=== PATIENT | female | born 1975 | race Caucasian/White ===

== ENCOUNTER 2017-07-09 21:03 | Emergency (ER) | payer MEDICAID ==
[~2017-07-09] VITALS: Ht 167.6 cm; Wt 83.9 kg
--- NOTE | 2017-07-09 21:15 | NUR ---
BIB[facility] PT C/O LAC TO RIGHT HAND 1ST AND 2ND DIGIT S/P HOLDING BROKEN GLASS BOTTLE. NO ACTIVE BLEEDING NOTED. VSS
[2017-07-09] MEDS ORDERED: LIDOCAINE 1% INJ 50 ML MDV IJ ONE (22:47)
[2017-07-09] MEDS ORDERED: ACETAMINOPHEN ES 500 MG TABLET ONE (22:48)
[2017-07-09] MEDS ORDERED: ACETAMINOPHEN ES 500 MG TABLET PO ONE (23:00)
[2017-07-09] MEDS ORDERED: LIDOCAINE HCL/PF 1% 30 ML VIAL TP ONE (23:00)
[2017-07-09 23:23] VITALS: BP 120/78
== END 2017-07-09 23:24 | disposition home or self-care (01) ==
LOC: ER 21:04
DX: S61.012A Laceration without foreign body of left thumb without damage to nail, initial encounter (principal); W25.XXXA Contact with sharp glass, initial encounter; Y93.89 Activity, other specified; Y92.89 Other specified places as the place of occurrence of the external cause; Y99.8 Other external cause status
CPT/HCPCS: 12001; 73130; 99284; A4606; A6402; J3490 ×2; Z7610